=== PATIENT | male | born 2000 | race Caucasian/White ===

== ENCOUNTER 2021-09-28 13:15 | Emergency (ER) | payer OTHER, SELFPAY ==
--- NOTE | 2021-09-28 13:21 | ED.SKABFB ---
HPI - Skin/Abscess/Foreign Bdy General Chief complaint: Extremity Problem,Nontraumatic Stated complaint: ingrown toenail right foot Time Seen by Provider: 09/28/21 13:21 Source: patient and RN notes reviewed History of Present Illness HPI narrative: Patient is a 21-year-old male who presents the urgent care with complaints of an infection to the right great toe. Patient states that 2 weeks ago he clipped his toenails and just noticed increased swelling and pain yesterday. Patient states that he has not taken anything [id number] for his symptoms. States that he squeezed on the area yesterday and was unable to remove any drainage or relieve pressure. Denies of any fever, nausea or vomiting. No other acute complaints. No acute distress noted. Patient aware of the plan of care. Some parts of this dictation were generated by voice recognition software and may contain typographical and/or grammatical inaccuracies. Related Data Allergies Allergy/AdvReac Type Severity Reaction Status Date / Time No Known Allergies Allergy Verified 09/28/21 13:40 Review of Systems Review of Systems: CONSTITUTIONAL: Denies fever, chills, or sweats. EYES: Denies visual changes, redness, or discharge. ENT: Denies rhinorrhea, congestion, sore throat, or otalgia. CARDIOVASCULAR: Denies chest pain, palpitations, or edema. RESPIRATORY: Denies cough or dyspnea. GASTROINTESTINAL: Denies abdominal pain, nausea, vomiting, or diarrhea. GENITOURINARY: Denies dysuria or hematuria. SKIN: Denies rash or itching. MUSCULOSKELETAL: Reports of pain and swelling to the right great toe NEUROLOGIC: Denies headache, numbness, or weakness. All other systems reviewed are negative, except as documented in HPI. PMFSH Comments At the time of my signature, I reviewed and agree with the nursing past medical, surgical, social, and family history. There is no relevant family history pertinent to the patient complaint. Exam Narrative: GENERAL: This is a well-nourished, well-developed patient, in no apparent distress. HEAD: normocephalic, atraumatic. EYES: PERRL. Sclera clear/white. Vision is grossly intact. EARS: External ears normal NOSE: External nose normal with no obvious nasal discharge, nares without redness, no rhinorrhea. THROAT: Mucous membranes moist NECK: Neck supple SKIN: Moderate erythemic edematous paronychia to the medial aspect of the right great toenail extending to the base with moderate tenderness NEURO: awake, alert, and oriented to person, place and time. There were no obvious focal neurologic abnormalities. EXTREMITIES: Positive strong right pedal pulse with capillary refill less than 2 seconds. Range of motion right lower extremity within normal limits. See skin for further evaluation Course Course Level of Care: Express Care Visit Vital Signs Vital signs: Vital Signs Temperature 98.9 F 09/28/21 13:23 Pulse Rate 78 09/28/21 13:23 Respiratory Rate 18 09/28/21 13:23 Blood Pressure 134/70 09/28/21 13:23 Pulse Oximetry 97 09/28/21 13:23 Oxygen Delivery Room Air 09/28/21 13:23 Temperature 98.9 F 09/28/21 13:23 Pulse Rate 78 09/28/21 13:23 Respiratory Rate 18 09/28/21 13:23 Blood Pressure 134/70 09/28/21 13:23 Pulse Oximetry 97 09/28/21 13:23 Oxygen Delivery Room Air 09/28/21 13:23 Reviewed Procedures Other Procedure Procedure 1: Other Procedure: Used Betadine to cleanse the paronychia to the right great toe. Medial aspect of the right great toe paronychia incised with an 18-gauge needle. Moderate serosanguineous yellow pus removed with scant bloody drainage. Patient tolerated well without anesthetic. Cleansed with Betadine and water postprocedure. Wrapped with cold water gauze. Procedure successful MDM - Skin/Abscess/Foreign Bdy MDM Narrative Medical decision making narrative: Advised patient to complete the oral antibiotic regimen as prescribed. Be sure to eat and drink with the me
[2021-09-28 13:23] VITALS: BP 134/70; PULSE 78; RESP 18; TEMP 37.2; O2SAT 97
== END 2021-09-28 13:58 | disposition home or self-care (01) ==
PROVIDERS: Emergency Provider Nurse Practitioner Family
DX: L03.031 Cellulitis of right toe (principal)
CPT/HCPCS: 10060; 99213; G0463

== ENCOUNTER 2023-10-01 11:13 | Emergency (ER) | payer OTHER, SELFPAY ==
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
[2023-10-01 11:20] VITALS: BP 121/59; PULSE 75; RESP 16; TEMP 36.8; O2SAT 98
== END 2023-10-01 11:40 | disposition home or self-care (01) ==
PROVIDERS: Emergency Provider Nurse Practitioner
DX: M77.8 Other enthesopathies, not elsewhere classified (principal)
CPT/HCPCS: 99213; G0463